=== PATIENT | female | born 1935 | race Caucasian/White ===

== ENCOUNTER 2018-04-04 16:11 | Emergency (ER) | payer MEDICARE, BC ==
[2018-04-04 17:39] LABS: ANION GAP 13.9 mmol/L (5-15)
[2018-04-04] MEDS ORDERED: Iopamidol 612 MG/ML 75 ML Bottle IV ONE (17:46)
[2018-04-04] MEDS ORDERED: Sodium Chloride 0.9% 50 ML IV SCH (18:00)
[2018-04-04] MEDS ORDERED: Sodium Chloride 0.9% 1,000 ML IV ONE (18:30)
[2018-04-04] MEDS ORDERED: metroNIDAZOLE/Normal Saline 500 MG in Premix Bag 1 BAG IV ONE (18:31)
--- NOTE | 2018-04-04 18:38 | EDM.PDOC ---
ED HPI GENERAL MEDICAL PROBLEM - General Chief Complaint: Abdominal Pain Stated Complaint: STOMACH PAIN Time Seen by Provider: 04/04/18 16:30 Source of Information: Reports: Patient, Family () History Limitations: Reports: No Limitations - History of Present Illness INITIAL COMMENTS - FREE TEXT/NARRATIVE: 3-year-old female presents to the emergency room with complaints of lower bilateral abdominal pain and diarrhea since Friday. Mcdonnell she finished an antibiotic and base steroid pack for an upper respiratory infection on Friday. She began having some lower quadrant pain and diarrhea. She has not had any fevers no chills no nausea no vomiting. She denies any blood in her stool or urine. Her lower josé pain is more of an ache. She denies any bloating. She feels her upper respiratory infection has improved. She's not having any shortness breath complaints. She states that she's had a history of diverticulitis many years ago. Onset: Gradual Onset Date: 04/01/18 Duration: Day(s):, Constant Location: Reports: Abdomen Quality: Reports: Ache Severity: Moderate Improves with: Reports: Rest Worsens with: Reports: None Associated Symptoms: Reports: Other (Diarrhea) Abdomen Pain Score (Numeric/FACES): 8 - Related Data Allergies Allergy/AdvReac Type Severity Reaction Status Date / Time clarithromycin [From Biaxin] Allergy Rash Verified 04/04/18 16:31 diazepam [From Valium] Allergy Nausea and Verified 04/04/18 16:31 Vomiting AND DIZZINESS fluconazole [From Diflucan] Allergy Tachycardia Verified 04/04/18 16:31 morphine Allergy Dizziness Verified 04/04/18 16:31 Penicillins Allergy Rash Verified 04/04/18 16:31 Home Meds: Home Meds Glucosamine [Glucosamine Sulfate] 1,500 mg PO DAILY 01/30/14 [History] Propafenone HCl 325 mg PO BID 01/30/14 [History] Vit D3/Folic Acid/B2/B6/B12 [Folgard Tablet] 2,000 units PO DAILY 01/30/14 [ History] busPIRone [Buspar] 20 mg PO BID 01/30/14 [History] metFORMIN [Glucophage] 750 mg PO BID 01/30/14 [History] ALPRAZolam [Xanax] 0.5 mg PO Q12H PRN 03/10/14 [History] Chondroitin Sulfate A Sodium [Chondroitin Sulfate Sodium] 1,200 mg PO DAILY [History] Valsartan 40 mg PO DAILY 04/04/18 [History] Warfarin Sodium [Jantoven] 2.5 mg PO ASDIRECTED 04/04/18 [History] Past Medical History HEENT History: Reports: Impaired Vision Cardiovascular History: Reports: Afib, High Cholesterol, Hypertension Gastrointestinal History: Reports: Colon Polyp, Diverticulosis, GERD Genitourinary History: Reports: None 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: Musculoskeletal History: Reports: None Psychiatric History: Reports: Anxiety Endocrine/Metabolic History: Reports: Diabetes, Type II, Obesity/BMI 30+, Vitamin D Deficiency Oncologic (Cancer) History: Reports: Malignant Melanoma Dermatologic History: Reports: Melanoma - Infectious Disease History Infectious Disease History: Reports: Chicken Pox, Measles - Past Surgical History HEENT Surgical History: Reports: Tonsillectomy Cardiovascular Surgical History: Reports: None GI Surgical History: Reports: Appendectomy, Cholecystectomy, Colonoscopy, EGD, Hernia, Abdominal Female Surgical History: Reports: Hysterectomy Endocrine Surgical History: Reports: None Musculoskeletal Surgical History: Reports: Hip Replacement Dermatological Surgical History: Reports: Skin Biopsy, Skin Graft Social & Family History - Tobacco Use Smoking Status *Q: Never Smoker - Caffeine Use Caffeine Use: Reports: None - Recreational Drug Use Recreational Drug Use: No - Living Situation & Occupation Living situation: Reports: , with Spouse Occupation: Retired ED ROS GENERAL - Review of Systems Review Of Systems: See Below Constitutional: Denies: Fever, Chills, Weakness, Weight Loss HEENT: Reports: No Symptoms Respiratory: Denies: Shortness of Breath Cardiovascular: Denies: Chest Pain, Lightheadedness Endocrine: Reports: High Glucose GI/Abdominal: Reports: Abdominal Pain, Diarrhea, Mucous in Stool. Denies: Bloody Stool, Vomiting : Denies: Dysuria, Flank Pain, Hematuria, Incontinence Musculoskeletal: Reports: No Symptoms Skin: Reports: No Symptoms Neurological: Reports: No Symptoms Psychiatric: Reports: No Symptoms Hematologic/Lymphatic: Reports: Easy Bleeding, Easy Bruising Immunologic: Reports: No Symptoms ED EXAM, GI/ABD - Physical Exam Exam: See Below Exam Limited By: No Limitations General Appearance: Alert, WD/WN, No Apparent Distress, Obese Eyes: Bilateral: Normal Appearance, EOMI Ears: Hearing Grossly Normal Nose: Normal Inspection Throat/Mouth: Normal Inspection, Normal Oropharynx, Normal Voice, No Airway Compromise Head: Atraumatic, Normocephalic Neck: Normal Inspection, Supple, Full Range of Motion. No: Lymphadenopathy (L) , Lymphadenopathy (R) Respiratory/Chest: No Respiratory Distress, Lungs Clear, Normal Breath Sounds Cardiovascular: Normal Peripheral Pulses, Regular Rate, Rhythm GI/Abdominal Exam: Normal Bowel Sounds, Soft, No Organomegaly, No Distention, No Mass, Tender (Bilateral lower quadrants). No: Distended, Guarding, Rigid Back Exam: Normal Inspection, Full Range of Motion Extremities: Normal Inspection, Normal Range of Motion Neurological: Alert, Oriented, No Motor/Sensory Deficits Psychiatric: Normal Affect, Normal Mood Skin Exam: Warm, Dry, Intact, Normal Color, No Rash Lymphatic: No Adenopathy Course - Vital Signs Last Recorded V/S: Last Vital Signs Temp 98.2 F 04/04/18 16:42 Pulse 77 04/04/18 16:42 Resp 20 04/04/18 16:42 BP 123/67 04/04/18 16:42 Pulse Ox 93 L 04/04/18 16:42 - Orders/Labs/Meds Orders: Active Orders 24 hr Category Date Time Status Abdomen Pelvis w Cont [CT] Stat Exams 04/04/18 17:06 Taken CDIFF TOX A+B [OP] Stat Lab 04/04/18 18:35 Ordered CULTURE URINE [RM] Stat Lab 04/04/18 21:28 Ordered UA W/MICROSCOPIC [URIN] Stat Lab 04/04/18 19:55 Ordered Sodium Chloride 0.9% [Normal Saline] 50 ml Med 04/04/18 18:00 Active IV ASDIRECTED Isolation [COMM] Stat Oth 04/04/18 17:04 Ordered Medication Orders Sodium Chloride (Normal Saline) 50 mls @ 200 mls/hr IV ASDIRECTED ANDRÉS Last Admin: 04/04/18 18:05 Dose: 200 mls/hr Labs: Laboratory Tests 04/04/18 04/04/18 04/04/18 Range/Units 17:15 17:15 17:15 WBC 17.4 H (5.0-10.0) 10^3/uL RBC 4.82 (3.80-5.50) 10^6/uL Hgb 13.8 (12.0-16.0) g/dL Hct 41.7 (37.0-47.0) % MCV 86.7 (82.0-92.0) fL MCH 28.7 (27.0-31.0) pg MCHC 33.1 (32.0-36.0) g/dL RDW 12.6 (11.5-14.5) % Plt Count 229 (150-300) 10^3/uL MPV 6.9 L (7.4-10.4) fL Neut % (Auto) 77.3 H (50.0-70.0) % Lymph % (Auto) 17.0 L (20.0-40.0) % [place] % (Auto) 4.9 (2.0-8.0) % Eos % (Auto) 0.8 L (1.0-3.0) % Baso % (Auto) 0.0 (0.0-1.0) % Neut # (Auto) 13.4 H (2.5-7.0) 10^3/uL Lymph # (Auto) 3.0 (1.0-4.0) 10^3/uL [place] # (Auto) 0.9 H (0.1-0.8) 10^3/uL Eos # (Auto) 0.1 (0.1-0.3) 10^3/uL Baso # (Auto) 0.0 (0.0-0.1) 10^3/uL PT 19.3 H (8.9-11.4) SEC INR 1.9 H (0.9-1.1) Sodium 138 (136-145) mmol/L Potassium 4.5 (3.3-5.3) mmol/L Chloride 101 (98-115) mmol/L Carbon Dioxide 27.6 (21.0-32.0) mmol/L Anion Gap 13.9 (5-15) mmol/L BUN 25 (6-25) mg/dL Creatinine 1.15 (0.51-1.17) mg/dL Est Cr Clr Drug Dosing 39.38 mL/min Estimated GFR (MDRD) 45 mL/min Glucose 154 mg/dL Calcium 9.3 (8.7-10.3) mg/dL Total Bilirubin 0.7 (0.2-1.0) mg/dL AST 12 L (15-37) U/L ALT 18 (12-78) U/L Alkaline Phosphatase 80 (46-116) IU/L Total Protein 6.5 (6.4-8.2) g/dL Albumin 2.96 L (3.00-4.80) g/dL Specimen Type Urine Color (YELLOW) Urine Appearance (CLEAR) Urine pH (5.0-9.0) Ur Specific [place] (1.005-1.030) Urine Protein (NEGATIVE) mg/dL Urine Glucose (UA) (NEGATIVE) mg/dL Urine Ketones (NEGATIVE) mg/dL Urine Occult Blood (NEGATIVE) Urine Nitrite (NEGATIVE) Urine Bilirubin (NEGATIVE) Urine Urobilinogen (0.2-1.0) E.U./dL Ur Leukocyte Esterase (NEGATIVE) Urine RBC /HPF Urine WBC /HPF Ur Epithelial Cells /LPF Urine Bacteria (NONE TO FEW) /HPF 04/04/18 Range/Units 19:55 WBC (5.0-10.0) 10^3/uL RBC (3.80-5.50) 10^6/uL Hgb (12.0-16.0) g/dL Hct (37.0-47.0) % MCV (82.0-92.0) fL MCH (27.0-31.0) pg MCHC (32.0-36.0) g/dL RDW (11.5-14.5) % Plt Count (150-300) 10^3/uL MPV (7.4-10.4) fL Neut % (Auto) (50.0-70.0) % Lymph % (Auto) (20.0-40.0) % [place] % (Auto) (2.0-8.0) % Eos % (Auto) (1.0-3.0) % Baso % (Auto) (0.0-1.0) % Neut # (Auto) (2.5-7.0) 10^3/uL Lymph # (Auto) (1.0-4.0) 10^3/uL [place] # (Auto) (0.1-0.8) 10^3/uL Eos # (Auto) (0.1-0.3) 10^3/uL Baso # (Auto) (0.0-0.1) 10^3/uL PT (8.9-11.4) SEC INR (0.9-1.1) Sodium (136-145) mmol/L Potassium (3.3-5.3) mmol/L Chloride (98-115) mmol/L Carbon Dioxide (21.0-32.0) mmol/L Anion Gap (5-15) mmol/L BUN (6-25) mg/dL Creatinine (0.51-1.17) mg/dL Est Cr Clr Drug Dosing mL/min Estimated GFR (MDRD) mL/min Glucose mg/dL Calcium (8.7-10.3) mg/dL Total Bilirubin (0.2-1.0) mg/dL AST (15-37) U/L ALT (12-78) U/L Alkaline Phosphatase (46-116) IU/L Total Protein (6.4-8.2) g/dL Albumin (3.00-4.80) g/dL Specimen Type Urincc Urine Color Yellow (YELLOW) Urine Appearance Slightly cloudy H (CLEAR) Urine pH 5.5 (5.0-9.0) Ur Specific [place] 1.010 (1.005-1.030) Urine Protein Negative (NEGATIVE) mg/dL Urine Glucose (UA) Negative (NEGATIVE) mg/dL Urine Ketones Negative (NEGATIVE) mg/dL Urine Occult Blood Trace-intact H (NEGATIVE) Urine Nitrite Negative (NEGATIVE) Urine Bilirubin Negative (NEGATIVE) Urine Urobilinogen 0.2 (0.2-1.0) E.U./dL Ur Leukocyte Esterase Small H (NEGATIVE) Urine RBC 0-5 /HPF Urine WBC 50-75 H /HPF Ur Epithelial Cells Moderate H /LPF Urine Bacteria Few (NONE TO FEW) /HPF Meds: Medications Generic Name Dose Route Start Last Admin Trade Name Freq PRN Reason Stop Dose Admin Sodium Chloride 50 mls @ 200 mls/hr 04/04/18 18:00 04/04/18 18:05 Normal Saline IV 200 mls/hr ASDIRECTED ANDRÉS Administration Discontinued Medications Generic Name Dose Route Start Last Admin Trade Name Freq PRN Reason Stop Dose Admin Sodium Chloride 1,000 mls @ 1,000 mls/hr 04/04/18 18:30 04/04/18 18:36 Normal Saline IV 04/04/18 19:29 1,000 mls/hr .BOLUS ONE Administration Metronidazole 500 mg/ Premix 100 mls @ 100 mls/hr 04/04/18 18:31 04/04/18 18: 49 IV 04/04/18 19:30 100 mls/hr ONETIME ONE Administration Iopamidol 75 ml 04/04/18 17:46 04/04/18 18:05 Isovue-300 (61%) IV 04/04/18 17:47 75 ml ONETIME ONE Administration Metronidazole Confirm 04/04/18 19:25 04/04/18 19:56 Flagyl Administered 04/04/18 19:26 Not Given Dose 3,000 mg .ROUTE .STK-MED ONE Trimethoprim/Sulfamethoxazole 1 tab 04/04/18 18:55 04/04/18 19:00 Septra Ds PO 04/04/18 18:56 1 tab ONETIME ONE Administration Trimethoprim/Sulfamethoxazole Confirm 04/04/18 19:35 04/04/18 19:56 Septra Ds Administered 04/04/18 19:36 Not Given Dose 3 tab .ROUTE .STK-MED ONE - Radiology Interpretation Free Text/Narrative:: CT abdomen and pelvis with IV contrast Findings: Inflammatory changes are seen in the left lower quadrant with evidence of diverticulosis. There is no abscess. There is no extraluminal air or bowel obstruction The appendix is not seen the gallbladder also is not seen There are atheromatous calcifications The liver and spleen, aorta, adrenals and left kidney are unremarkable There is ill-defined 2 cm hypodensity in the midpole the right kidney. This likely is just a cyst Impression: Mild diverticulitis CT Results Date: 04/04/18 CT Results Time: 18:10 Departure - Departure Time of Disposition: 20:28 Disposition: Home, Self-Care 01 Condition: Fair Clinical Impression: Diverticulitis - Discharge Information Instructions: Diverticulitis Referrals: Marta Arreola MD [Primary Care Provider] - Forms: ED Department Discharge - My Orders Last 24 Hours: My Active Orders 04/04/18 17:04 Isolation [COMM] Stat 04/04/18 17:06 Abdomen Pelvis w Cont [CT] Stat 04/04/18 18:00 Sodium Chloride 0.9% [Normal Saline] 50 ml IV ASDIRECTED 04/04/18 18:35 CDIFF TOX A+B [OP] Stat 04/04/18 19:55 UA W/MICROSCOPIC [URIN] Stat 04/04/18 21:28 CULTURE URINE [RM] Stat - Assessment/Plan Last 24 Hours: My Active Orders 04/04/18 17:04 Isolation [COMM] Stat 04/04/18 17:06 Abdomen Pelvis w Cont [CT] Stat 04/04/18 18:00 Sodium Chloride 0.9% [Normal Saline] 50 ml IV ASDIRECTED 04/04/18 18:35 CDIFF TOX A+B [OP] Stat 04/04/18 19:55 UA W/MICROSCOPIC [URIN] Stat 04/04/18 21:28 CULTURE URINE [RM] Stat Assessment:: Mild diverticulitis Plan: 1. Flagyl 500 mg by mouth every 6 hours for 7 days 2. Bactrim DS twice a day for 7 days. 3. Continue with oral hydration and soft foods. 4. Recommend follow-up with your primary care early next week for recheck of her lab draws.
[2018-04-04] MEDS ORDERED: Sulfamethoxazole/Trimethoprim 800-160 MG Tab PO ONE ×2 (18:55→19:36)
[2018-04-04] MEDS ORDERED: metroNIDAZOLE 500 MG Tab PO ONE (19:25)
[2018-04-04] MEDS ORDERED: metroNIDAZOLE 500 MG Tab ONE (19:25)
[2018-04-04] MEDS ORDERED: Sulfamethoxazole/Trimethoprim 800-160 MG Tab ONE (19:35)
[2018-04-05] MEDS ORDERED: metroNIDAZOLE 500 MG Tab PO ONE
== END 2018-04-04 20:28 | disposition home or self-care (01) ==
LOC: KA.ED 16:11
DX: K57.92 Diverticulitis of intestine, part unspecified, without perforation or abscess without bleeding (principal); Z88.8 Allergy status to other drugs, medicaments and biological substances; Z88.0 Allergy status to penicillin; Z88.5 Allergy status to narcotic agent; Z79.899 Other long term (current) drug therapy
CPT/HCPCS: 74177; 80053; 81001; 85025; 85610; 87086; 87324; 96365; 99284; A9270; J3490; J7030; J7050; Q9967; 99283

== ENCOUNTER 2019-03-28 20:20 | Emergency (ER) | payer MEDICARE, BC ==
--- NOTE | 2019-03-28 21:59 | EDM.PDOC ---
ED HPI GENERAL MEDICAL PROBLEM - General Chief Complaint: Respiratory Problem Stated Complaint: cough/SOB Time Seen by Provider: 03/28/19 21:44 Source of Information: Reports: Patient, Family History Limitations: Reports: No Limitations - History of Present Illness INITIAL COMMENTS - FREE TEXT/NARRATIVE: Patient presents with productive cough, fever and weakness. Has had a bit of dyspnea and a little tachypneic now. She says for a week she has been coughing up lots of thick, green phlegm. She has had bronchitis before but doesn't think she's ever had pneumonia and did have the pneumonia shot. No history of CHF but is supposed to take her water pill twice a week; she didn't take it this week as she was traveling to a family event in [place] and didn't want to be using the bathroom all the time especially on the airplane. She hasn't had swelling in her ankles though, surprisingly she says. Denies cardiac problems other than occasional A Fib which she hasn't had for quite awhile now. She avoids caffeine and grapefruit which trigger it. - Related Data Allergies Allergy/AdvReac Type Severity Reaction Status Date / Time clarithromycin [From Biaxin] Allergy Rash Verified 03/28/19 22:04 diazepam [From Valium] Allergy Nausea and Verified 03/28/19 22:04 Vomiting AND DIZZINESS fluconazole [From Diflucan] Allergy Tachycardia Verified 03/28/19 22:04 morphine Allergy Dizziness Verified 03/28/19 22:04 Penicillins Allergy Rash Verified 03/28/19 22:04 Home Meds: Home Meds Glucosamine [Glucosamine Sulfate] 1,500 mg PO DAILY 01/30/14 [History] Propafenone HCl 325 mg PO BID 01/30/14 [History] Vit D3/Folic Acid/B2/B6/B12 [Folgard Tablet] 2,000 units PO DAILY 01/30/14 [ History] busPIRone [Buspar] 20 mg PO BID 01/30/14 [History] metFORMIN [Glucophage] 750 mg PO BID 01/30/14 [History] ALPRAZolam [Xanax] 0.5 mg PO Q12H PRN 03/10/14 [History] Warfarin Sodium [Jantoven] 2.5 mg PO ASDIRECTED 04/04/18 [History] Furosemide 20 mg PO ASDIRECTED 03/28/19 [History] Losartan [Cozaar] 50 mg PO DAILY 03/28/19 [History] Metoprolol Succinate [Toprol XL] 25 mg PO DAILY 03/28/19 [History] atorvaSTATin [Lipitor] 10 mg PO BEDTIME 03/28/19 [History] Past Medical History HEENT History: Reports: Impaired Vision Cardiovascular History: Reports: Afib, High Cholesterol, Hypertension Gastrointestinal History: Reports: Colon Polyp, Diverticulosis, GERD Genitourinary History: Reports: 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: Musculoskeletal History: Reports: None Psychiatric History: Reports: Anxiety Endocrine/Metabolic History: Reports: Diabetes, Type II, Obesity/BMI 30+, Vitamin D Deficiency Oncologic (Cancer) History: Reports: Malignant Melanoma Dermatologic History: Reports: Melanoma - Infectious Disease History Infectious Disease History: Reports: Chicken Pox, Measles - Past Surgical History HEENT Surgical History: Reports: Tonsillectomy Cardiovascular Surgical History: Reports: None GI Surgical History: Reports: Appendectomy, Cholecystectomy, Colonoscopy, EGD, Hernia, Abdominal Female Surgical History: Reports: Hysterectomy Endocrine Surgical History: Reports: None Musculoskeletal Surgical History: Reports: Hip Replacement Dermatological Surgical History: Reports: Skin Biopsy, Skin Graft Social & Family History - Caffeine Use Caffeine Use: Reports: None - Living Situation & Occupation Living situation: Reports: , with Spouse Occupation: Retired ED ROS GENERAL - Review of Systems Review Of Systems: See Below Constitutional: Reports: Fever, Weakness HEENT: Reports: No Symptoms Respiratory: Reports: Shortness of Breath, Cough, Sputum Cardiovascular: Denies: Chest Pain, Lightheadedness, Syncope GI/Abdominal: Denies: Abdominal Pain, Nausea, Vomiting : Denies: Dysuria, Pain Musculoskeletal: Reports: No Symptoms Skin: Denies: Cyanosis, Jaundice, Mottled, Pallor, Diaphoresis Neurological: Denies: Confusion, Dizziness, Seizure, Syncope, Trouble Speaking Psychiatric: Denies: Agitation, Anxiety, Confusion ED EXAM, GENERAL - Physical Exam Exam: See Below Exam Limited By: No Limitations General Appearance: Alert, WD/WN, No Apparent Distress Eye Exam: Bilateral Eye: EOMI, Normal Inspection, PERRL Ears: Normal External Exam, Hearing Grossly Normal Nose: Normal Inspection, No Blood Throat/Mouth: Normal Inspection, Normal Lips, Normal Voice, No Airway Compromise Head: Atraumatic, Normocephalic Neck: Normal Inspection, Full Range of Motion Respiratory/Chest: Respiratory Distress (just a little prolonged), Rales (worse at middle left lung but slight in left base and middle right lung). No: Wheezing, Stridor Cardiovascular: Regular Rate, Rhythm, No Edema, No Gallop, No JVD, No Murmur GI/Abdominal: Soft, Non-Tender, No Organomegaly, No Distention Back Exam: Normal Inspection, Full Range of Motion. No: CVA Tenderness (L), CVA Tenderness (R) Extremities: Normal Inspection, Normal Range of Motion, Non-Tender, No Pedal Edema Neurological: Alert, Oriented, Normal Cognition, No Motor/Sensory Deficits Psychiatric: Normal Affect, Normal Mood Skin Exam: Warm, Dry, Intact, Normal Color, No Rash Course - Vital Signs Last Recorded V/S: Last Vital Signs Temp 99.9 F 03/28/19 21:25 Pulse 81 03/28/19 21:25 Resp 22 H 03/28/19 21:25 BP 139/49 L 03/28/19 21:25 Pulse Ox 92 L 03/28/19 21:25 - Orders/Labs/Meds Orders: Active Orders 24 hr Category Date Time Status Chest 2V [CR] Stat Exams 03/28/19 21:48 Ordered Labs: Laboratory Tests 03/28/19 03/28/19 Range/Units 21:45 21:45 WBC 12.78 H (5.00-10.00) 10^3/uL RBC 4.88 (3.80-5.50) 10^6/uL Hgb 14.4 (12.0-16.0) g/dL Hct 43.2 (37.0-47.0) % MCV 88.5 (82.0-92.0) fL MCH 29.5 (27.0-31.0) pg MCHC 33.3 (32.0-36.0) g/dL RDW 12.7 (11.5-14.5) % Plt Count 236 (150-400) 10^3/uL MPV 8.8 (7.4-10.4) fL Immature Gran % (Auto) 0.2 (0.0-5.0) % Neut % (Auto) 62.4 (50.0-70.0) % Lymph % (Auto) 26.1 (20.0-40.0) % [place] % (Auto) 9.9 H (2.0-8.0) % Eos % (Auto) 1.3 (1.0-3.0) % Baso % (Auto) 0.1 (0.0-1.0) % Immature Gran # (Auto) 0.03 (0.00-0.50) 10^3/uL Neut # (Auto) 7.97 H (2.50-7.00) 10^3/uL Lymph # (Auto) 3.34 (1.00-4.00) 10^3/uL [place] # (Auto) 1.26 H (0.10-0.80) 10^3/uL Eos # (Auto) 0.17 (0.10-0.30) 10^3/uL Baso # (Auto) 0.01 (0.00-0.10) 10^3/uL Sodium 136 (136-145) mmol/L Potassium 4.5 (3.3-5.3) mmol/L Chloride 101 (98-115) mmol/L Carbon Dioxide 29.4 (21.0-32.0) mmol/L Anion Gap 10.1 (5-15) mmol/L BUN 20 (6-25) mg/dL Creatinine 0.95 (0.51-1.17) mg/dL Est Cr Clr Drug Dosing 48.39 mL/min Estimated GFR (MDRD) 56 mL/min Glucose 150 H (75 - 99) mg/dL Calcium 9.6 (8.7-10.3) mg/dL B-Natriuretic Peptide 28 (0-100) pg/mL - Re-Assessments/Exams Free Text/Narrative Re-Assessment/Exam: 03/28/19 22:51 WBC 12.8 and CXR shows likely infiltrate in left lung where I hear crackles the loudest. CXR report indicates more likely atelectasis but clinically she has pneumonia with little doubt. Her sats are 94% on RA and she is doing okay. I consulted an UpToDate algorithm to help confirm my decision to treat outpatient. Patient doesn't live alone and would prefer to go home if okay. I discussed findings and treatment plan with patient and her daughter. Rocephin and doxycycline given in ER prior to discharge. Azithromycin had too many interactions with other meds I felt. 03/28/19 23:05 Patient stable at discharge. Departure - Departure Time of Disposition: 23:03 Disposition: Home, Self-Care 01 Condition: Good Clinical Impression: CAP (community acquired pneumonia) Qualifiers: Laterality: left Lung location: unspecified part of lung Qualified Code(s): J18.9 - Pneumonia, unspecified organism - Discharge Information Instructions: Community-Acquired Pneumonia, Adult Forms: ED Department Discharge Additional Instructions: 1. Drink 8 cups of water daily. 2. Take the antibiotics as directed. 3. See your PCP tomorrow as scheduled and make sure they give you a prescription for their preference in antibiotics to continue treatment for the pneumonia. - My Orders Last 24 Hours: My Active Orders 03/28/19 21:48 Chest 2V [CR] Stat - Assessment/Plan Last 24 Hours: My Active Orders 03/28/19 21:48 Chest 2V [CR] Stat
[2019-03-28 22:12] LABS: ANION GAP 10.1 mmol/L (5-15)
[2019-03-28] MEDS ORDERED: cefTRIAXone 1 GM Vial IVPUSH ONE (22:45)
[2019-03-28] MEDS ORDERED: cefTRIAXone 1 GM Vial ONE (22:46)
--- NOTE | 2019-03-29 08:36 | CR ---
[id number] RAD/RAD Chest PA And Lateral EXAM: RAD Chest PA And Lateral INDICATION: COUGH. COMPARISON: 2013. DISCUSSION: Streaky left lung base parenchymal opacity consistent with pneumonia in the clinical setting of infection. Differential diagnosis includes subsegmental atelectasis. Right lung is clear. IMPRESSION: As above. Don Landeros MD 03/29/19 0833 Thank you for allowing us to participate in the care of your patient.
== END 2019-03-28 23:20 | disposition home or self-care (01) ==
LOC: KA.ED 20:20
DX: J18.9 Pneumonia, unspecified organism (principal); I10 Essential (primary) hypertension; F41.9 Anxiety disorder, unspecified; E11.9 Type 2 diabetes mellitus without complications; E66.9 Obesity, unspecified; Z79.01 Long term (current) use of anticoagulants; Z79.84 Long term (current) use of oral hypoglycemic drugs; Z98.890 Other specified postprocedural states; Z90.49 Acquired absence of other specified parts of digestive tract; Z90.710 Acquired absence of both cervix and uterus; Z88.0 Allergy status to penicillin; Z88.1 Allergy status to other antibiotic agents; Z88.5 Allergy status to narcotic agent; R06.00 Dyspnea, unspecified; R06.82 Tachypnea, not elsewhere classified
CPT/HCPCS: 36415; 71046; 80048; 83880; 85025; 96374; 99284; 99285; A9270; J0696

== ENCOUNTER 2023-10-24 12:49 | Emergency (ER) | payer MEDICARE, BC ==
[2023-10-24] MEDS ORDERED: Sodium Chloride 0.9% 10 ML Syringe FLUSH PRN (13:24)
[2023-10-24 13:29] LABS: BASOPHILS ABSOLUTE AUTO 0.01 10^3/uL (0.00-0.10); BASOPHILS PERCENT AUTO 0.1 % (0.0-1.0); EOSINOPHILS ABSOLUTE AUTO 0.12 10^3/uL (0.10-0.30); EOSINOPHILS PERCENT AUTO 1.2 % (1.0-3.0); HEMATOCRIT 40.4 % (37.0-47.0); HEMOGLOBIN 12.2 g/dL (12.0-16.0); IMMATURE GRAN ABSOLUTE AUTO 0.01 10^3/uL (0.00-0.50); IMMATURE GRAN PERCENT AUTO 0.1 % (0.0-5.0); LYMPHOCYTES ABSOLUTE AUTO 2.59 10^3/uL (1.00-4.00); LYMPHOCYTES PERCENT AUTO 26.9 % (20.0-40.0); MEAN CORPUSCULAR HEMOGLOBIN 27.5 pg (27.0-31.0); MEAN CORPUSCULAR HGB CONC 30.2 g/dL (32.0-36.0); MEAN CORPUSCULAR VOLUME 91.2 fL (82.0-92.0); MEAN PLATELET VOLUME 9.1 fL (7.4-10.4); MONOCYTES ABSOLUTE AUTO 0.83 10^3/uL (0.10-0.80); MONOCYTES PERCENT AUTO 8.6 % (2.0-8.0); NEUTROPHILS ABSOLUTE AUTO 6.06 10^3/uL (2.50-7.00); NEUTROPHILS PERCENT AUTO 63.1 % (50.0-70.0); PLATELET COUNT,PLT 219 10^3/uL (150-400); RED BLOOD CELL COUNT 4.43 10^6/uL (3.80-5.50); RED CELL DISTRIBUTION WIDTH 12.4 % (11.5-14.5); WHITE BLOOD CELL COUNT,WBC 9.62 10^3/uL (5.00-10.00)
[2023-10-24 13:43] LABS: ALBUMIN 2.91 g/dL (3.40-5.00); ANION GAP 7.7 mmol/L (5-15); BILIRUBIN TOTAL 0.6 mg/dL (0.2-1.0); CALCIUM 8.9 mg/dL (8.7-10.3); CREATININE 1.4 mg/dL (0.51-1.17); EST CRCL DRUG DOSING (CG) 29.46 mL/min; PROTEIN TOTAL,TP 6.3 g/dL (6.4-8.2)
[2023-10-24 13:46] LABS: POTASSIUM,K 5.7 mmol/L (3.5-5.1)
== END 2023-10-24 15:20 | disposition home or self-care (01) ==
LOC: MERGE 12:49 → KA.ED 12:49
DX: R00.1 Bradycardia, unspecified (principal); N17.9 Acute kidney failure, unspecified; R53.1 Weakness; I10 Essential (primary) hypertension; E78.00 Pure hypercholesterolemia, unspecified; K21.9 Gastro-esophageal reflux disease without esophagitis; E11.9 Type 2 diabetes mellitus without complications; E66.9 Obesity, unspecified; Z68.39 Body mass index [BMI] 39.0-39.9, adult; Z79.01 Long term (current) use of anticoagulants; Z88.1 Allergy status to other antibiotic agents; Z88.5 Allergy status to narcotic agent; Z88.0 Allergy status to penicillin; Z79.899 Other long term (current) drug therapy
CPT/HCPCS: 71045; 80053; 83880; 84484; 85025; 99285